=== PATIENT | male | born 1995 | race Caucasian/White ===

== ENCOUNTER 2018-05-06 06:45 | Emergency (ER) | payer OTHER ==
[~2018-05-06] VITALS: Ht 177.8 cm; Wt 70.8 kg
--- OUTSIDE RECORDS SUMMARY | ~2018-05-06 | XMS | Clinical Summary ---
Demographics + + + | Address | [address] | | | [place] [address] | + + + | Home Phone [...] [place] | | | | | [address] | | + + + + + Care Team Providers + +------+ + | Care Electrocardiographic Technician Name | Role | Phone | + +------+ + | Art Alaniz MD | PP | | + +------+ + Source Comments DAVID is fully live on both [facility] and [facility] InPatient.[facility] Allergies Not on File Current Medications Not [...] | [address] | | | [address] | [place] [address] | | | [place] | | | [...] | | al/Fam | | 1956 | [phone] | [place] [address] | | | tod | | | [phone] | | + +--------+ +--------+ + +"
--- OUTSIDE RECORDS SUMMARY | ~2018-05-06 | XMS | Clinical Summary ---
Demographics + + + | Address | [address] | | | [place] [address] | + + + | Home Phone | | + + + | Preferred Language | Unknown | + + + | Marital Status | Single | + + + | Restorationism Affiliation | Unknown | + + + | Race | Unknown | + + + | Ethnic Group | Unknown | + + + Author + + + | Author | [facility] | | | and [place] | + + + | Organization | [facility] | | | and [place] [...] Team Providers + +------+ + | Care Scrap Yard Worker Name | Role | Phone | + [...]
--- OUTSIDE RECORDS SUMMARY | ~2018-05-06 | XMS | Clinical Summary ---
Demographics + + + | Address | [address] | | | [place] [address] | + + + | Home Phone | | + + + | Preferred Language | Unknown | + + + | Marital Status | Single | + + + | Faith Affiliation | Unknown | + + + [...] [place] | | | | | [address] | | + + + + + Care Team Providers + +------+ + | Care Sales Representative Consultant Name | Role | Phone | + +------+ + | Art Alaniz MD | PP | | + +------+ + Source Comments DAVID is fully live on both [facility] Ambulatory and [facility] InPatient.[facility] Allergies Not on File Current Medications [...] | [address] | | | [address] | [place] [address] | | | [place] | | | [...] | | al/Fam | | 1956 | [phone] | [place] [address] | | | tod | | | [phone] | | + +--------+ +--------+ + +"
--- OUTSIDE RECORDS SUMMARY | ~2018-05-06 | XMS | Clinical Summary ---
Demographics + + + | Address | [address] | | | [place] [address] | + + + | Home Phone | | + + + | Preferred Language | Unknown | + + + | Marital Status | Single | + + + | Adventism Affiliation | Unknown | + + + | Race | Unknown | + + + | Ethnic Group | Unknown | + + + Author + + + | Author | [facility] | | | and [place] | + + + | Organization | [facility] | | | and [place] [...] Team Providers + +------+ + | Care Veterinary Meat Inspector Name | Role | Phone | + [...]
[~2018-05-06 06:45] MED LIST: HIBICLENS118 ML TP; IBUPROFEN800 MG PO; NORCO 5-325 TA1 EACH PO; PROMETHAZINE HC25 M1 PO; SEPTRA DS TABL1 EACH PO
[2018-05-06] MEDS ORDERED: BACTRIM DS TAB1 EACH PO (07:13)
[2018-05-06] MEDS ORDERED: KEFLEX500 MG PO (07:13)
== END 2018-05-06 07:24 | disposition home or self-care (01) ==
LOC: ED 06:45
DX: S61.431A Puncture wound without foreign body of right hand, initial encounter (principal); L08.9 Local infection of the skin and subcutaneous tissue, unspecified; W22.8XXA Striking against or struck by other objects, initial encounter; Y99.0 Civilian activity done for income or pay
CPT/HCPCS: 99283

== ENCOUNTER 2018-05-08 09:45 | Emergency (ER) | payer OTHER ==
[~2018-05-08] VITALS: Ht 177.8 cm; Wt 70.8 kg
--- OUTSIDE RECORDS SUMMARY | ~2018-05-08 | XMS | Clinical Summary ---
Demographics + + + | Address | [address] | | | [place] [address] | + + + | Home Phone | | + + + | Preferred Language | Unknown | + + + | Marital Status | Single | + + + | Mormonism Affiliation | Unknown | + + + | Race | Unknown | + + + | Ethnic Group | Unknown | + + + Author + + + | Author | [facility] | | | and [place] | + + + | Organization | [facility] | | | and [place] | + + + | Address | Unknown | + + + | Phone | Unavailable | + + + Support + + +---------+ + | Name | Relationship | Address | Phone | + + +---------+ + | Romaine Herrera | ECON | Unknown | | + + +---------+ + Care Team Providers + +------+ + | Care Project Engineering Director Name | Role | Phone | + +------+ + PP | Unavailable | + +------+ + Allergies Not on File Current Medications Not on file Active Problems Not on file Social History + +-------+ +--------+------+ | Tobacco Use | Types | Packs/Day | Years | Date | | | | | Used | | + +-------+ +--------+------+ | Never Assessed | | | | | + +-------+ +--------+------+ + + + | Sex Assigned at | Date Recorded | | | | + + + | Not on file | | + + + Plan of Treatment + + + + + | Health Maintenance | Due Date | Last Done | Comments | + + + + + | Vaccine: | | | | | Dtap/Tdap/Td (1 - | 3 | | | | Tdap) | | | | + + + + + | Vaccine: Influenza | | | | | (#1) | 8 | | | + + + + + Results Not on filefrom Last 3 Months"
--- OUTSIDE RECORDS SUMMARY | ~2018-05-08 | XMS | Clinical Summary ---
Demographics + + + | Address | [address] | | | [place] [address] | + + + | Home Phone | | + + + | Preferred Language | Unknown | + + + | Marital Status | Single | + + + | Religion Affiliation | Unknown | + + + | Race | White | + + + | Ethnic Group | Not or | + + + Author + + + | Author | [facility] | + + + | Organization | [facility] | + + + | Address | Unknown | + + + | Phone | Unavailable | + + + Support + + + + + | Name | Relationship | Address | Phone | + + + + + | CHAVO RAMON | ECON | [address] | | | | | [place] | | | | | [address] | | + + + + + Care Team Providers + +------+ + | Care Church Communications Administrator Name | Role | Phone | + +------+ + | Art Alaniz MD | PP | | + +------+ + Source Comments DAVID is fully live on both [facility] and [facility] InPatient.[facility] Allergies Not on File Current Medications Not [...] | + + + + + | Influenza (Flu) | | | | | vaccination (#1) | 8 | | | + + + + + Results Not on filefrom Last 3 Months Insurance + +--------+ +------+ + + | Payer | Benefi | Subscriber | Type | Phone | Address | | | t Plan | ID | | | | | | / | | | | | | | Group | | | | | + +--------+ +------+ + + | [employer] | PHP | [phone] | PPO | [phone] [address] | | | [address] | [address] | [place] [address] | | | [place] | | | | | | | [place] | | | | | + +--------+ +------+ + + + +--------+ +--------+ + + | Guarantor Name | Accoun | Relation to | Date | Phone | Billing Address | | | t Type | Patient | of | | | | | | | | | | + +--------+ +--------+ + + | CHAVO RAMON | Person | Parent [birth year] Home: | [address] | | | al/Fam | | 1956 | [phone] | [place] [address] | | | tod | | | [birth year] | | + +--------+ +--------+ + +"
--- OUTSIDE RECORDS SUMMARY | ~2018-05-08 | XMS | Clinical Summary ---
Demographics + + + | Address | [address] | | | [place] [address] | + + + | Home Phone | | + + + | Preferred Language | Unknown | + + + | Marital Status | Single | + + + | Cheondoism Affiliation | Unknown | + + + | Race | Unknown | + + + | Ethnic Group | Unknown | + + + Author + + + | Author | [facility] | | | and [place] | + + + | Organization | [facility] | | | and [place] [...] Team Providers + +------+ + | Care Repair Department Supervisor Name | Role | Phone | + [...]
--- OUTSIDE RECORDS SUMMARY | ~2018-05-08 | XMS | Clinical Summary ---
Demographics + + + | Address | [address] | | | [place] [address] | + + + | Home Phone | | + + + | Preferred Language | Unknown | + + + | Marital Status | Single | + + + | Moravian Affiliation | Unknown | + + + [...] [place] | | | | | [address] | | + + + + + Care Team Providers + +------+ + | Care Warehouse Packer Name | Role | Phone | + +------+ + | Art Alaniz MD | PP | | + +------+ + Source Comments DAVID is fully live on both [facility] and [facility] InPatient.[facility] Allergies Not on File Current [...] | [address] | | | [address] | [place] [address] | | | [place] | | | [...] | | al/Fam | | 1956 | [phone] | [place] [address] | | | tod | | | [phone] | | + +--------+ +--------+ + +"
[~2018-05-08 09:45] MED LIST changes: +BACTRIM DS TAB1 EACH PO; +KEFLEX500 MG PO
--- OUTSIDE RECORDS SUMMARY | 2018-05-08 09:50 | XMS ---
PreManage Notification: LEI RAMON [facility] Director Events No recent Security Events currently on file CRITERIA MET - [facility] - 2 Visits in 30 Days CARE PROVIDERS There are no care providers on record at this time. Luigi has no Care Guidelines for this patient. [facility]12 MO.) [facility] NOTE: Visits indicate total known visits. ED/C VISIT TRACKING (12 MO.) 05/08/2018 09:47 [facility] [place] TYPE: Emergency COMPLAINT: - R HAND SWELLING, PAIN/INJURY 05/06/2018 06:46 [facility] [place] TYPE: Emergency COMPLAINT: - R HAND PAIN,INJURY INPATIENT VISIT TRACKING (12 MO.) No inpatient visits to display in this time frame [id number]
== END 2018-05-08 11:52 | disposition home or self-care (01) ==
LOC: ED 09:45
DX: L03.113 Cellulitis of right upper limb (principal); S61.431D Puncture wound without foreign body of right hand, subsequent encounter; Z87.891 Personal history of nicotine dependence
CPT/HCPCS: 73130; 99283-25

== ENCOUNTER 2024-03-11 13:44 | Emergency (ER) | payer SELFPAY ==
[~2024-03-11] VITALS: Ht 177.8 cm; Wt 69.9 kg
--- OUTSIDE RECORDS SUMMARY | 2024-03-11 13:51 | XMS ---
PreManage Notification: LEI RAMON Security Cancer Researcher Events No recent Security Events currently on file CRITERIA MET - Group Notification CARE PROVIDERS There are no care providers on record at this time. Luigi has no Care Guidelines for this patient. [place] VISIT COUNT (12 MO.) 1 [facility] TOTAL 1 NOTE: Visits indicate total known visits. ED/[facility] VISIT TRACKING (12 MO.) 03/11/2024 13:45 [facility] TYPE: Emergency COMPLAINT: - HEAD INJURY INPATIENT VISIT TRACKING (12 MO.) No inpatient visits to display in this time frame [id number]
[2024-03-11 16:15] VITALS: BP 128/74
== END 2024-03-11 16:15 | disposition home or self-care (01) ==
LOC: ED 13:44
DX: S01.01XA Laceration without foreign body of scalp, initial encounter (principal); Z87.891 Personal history of nicotine dependence; W22.8XXA Striking against or struck by other objects, initial encounter
CPT/HCPCS: 99282